=== PATIENT | male | born 1995 | race Caucasian/White ===

== ENCOUNTER 2016-07-07 17:19 | Observation (INO) | payer OTHER ==
[2016-07-07] MEDS ORDERED: Tetanus-Diptheria Toxoids* 0.5 ML SYRINGE IM ONE (18:41)
--- NOTE | 2016-07-07 19:31 | RAD ---
Indication: Laceration over patellar tendon with chainsaw. Comparison: None. Technique: AP and lateral views LEFT knee. REPORT AND IMPRESSION: Negative for fracture or joint effusion. Anterior soft tissue laceration which appears to involve the patellar tendon. Given normal position of the patella without gross retraction a complete patellar tendon tear is not suspected. The tear may be full-thickness anterior posterior based on the lateral radiograph but incomplete in the medial lateral direction. Anterior soft tissue swelling.
[2016-07-07] MEDS ORDERED: diPHENhydraMINE PO* 25 MG PO PRN (21:22)
[2016-07-07] MEDS ORDERED: Ondansetron INJ* 2 MG/ML VIAL IV PRN (21:22)
[2016-07-07] MEDS ORDERED: Acetaminophen TAB* 325 MG PO PRN (21:22)
[2016-07-07] MEDS ORDERED: NS 0.9% 1000 ML* 1,000 ML IV SCH (21:30)
[2016-07-07] MEDS ORDERED: ceFAZolin 1 GM in Dextrose (*) 1 GM/50 ML BAG IVPB ONE (21:36)
[2016-07-07] MEDS: oxyCODONE/Acetamin 5/325 MG* TAB PO PRN (21:38)
[2016-07-07] MEDS: ceFAZolin 1 GM in Dextrose (*) 1 GM/50 ML BAG IVPB SCH (21:45)
--- NOTE | 2016-07-07 21:56 | ED ---
Lower Extremity - History of Current Complaint Chief Complaint: EDLacSutureRecheck Stated Complaint: LEFT KNEE LAC FROM CHAINSAW Time Seen by Provider: 07/07/16 17:44 Pain Intensity: 6 - Allergies/Home Medications Allergies/Adverse Reactions: Allergies Allergy/AdvReac Type Severity Reaction Status Date / Time No Known Allergies Allergy Verified 07/07/16 17:36 PMH/Surg Hx/FS Hx/Imm Hx - Immunization History Date of Tetanus Vaccine: unknown Date of Influenza Vaccine: none Infectious Disease History: No Infectious Disease History: Denies: Traveled Outside the [place] in Last 30 Days - Social History Alcohol Use: None Substance Use Type: Reports: None Smoking Status (MU): Light Every Day Tobacco Smoker Physical Exam Vital Signs On Initial Exam: Initial Vitals Temp Pulse Resp BP Pulse Ox 98.8 F 108 18 147/77 100 07/07/16 17:33 07/07/16 17:33 07/07/16 17:33 07/07/16 17:33 07/07/16 17:33 Procedures - Laceration/Wound Repair 1 Location: lower extremity - knee Description: Linear Anesthesia: Local, Bicarb Betadine Prep?: Yes Irrigated w/ Saline (ccs): 500 Laceration/Wound Explored: contaminated - pieces of wood, bug, dirt Debridement: minimal Suture Type: Nylon - 4-0 Layer Closure?: No Sterile Dressing Applied?: Yes Diagnostics - Vital Signs Vital Signs Temp Pulse Resp BP Pulse Ox 07/07/16 18:01 100.1 F 107 18 143/81 98 07/07/16 17:33 98.8 F 108 18 147/77 100 - Laboratory Lab Statement: Any lab studies that have been ordered have been reviewed, and results considered in the medical decision making process.
--- NOTE | 2016-07-08 00:27 | HP ---
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 The patient noted bleeding and pain about the knee. He presented to [facility] Emergency Department, where the patient was seen by ED staff. Wound was cleaned out with normal saline. The patient was given a dose of antibiosis and the tetanus was updated. This surgeon was in the emergency department seeing another patient and came over to examine Mr. Bello. Left knee wound had been previously numbed up by ED staff. The patient denied any fevers, sweats, chills. The patient denied any other injuries to any other body parts. No head trauma. No loss of consciousness. No fevers, sweats, chills. PAST MEDICAL HISTORY: Seasonal allergies. PAST SURGICAL HISTORY: None. MEDICATIONS: None. ALLERGIES: No known drug allergies. REVIEW OF SYSTEMS: No fevers, sweats, or chills. No chest pain, palpitations, or shortness of breath. No head pain or abdominal pain. Denies any numbness or tingling of left lower extremity prior to the local anesthetic block by ED staff. PHYSICAL EXAMINATION GENERAL: No acute distress, alert and oriented x3, appropriate mood and affect , appropriate dress and hygiene, well coordinated bilateral upper and lower extremities, gait not assessed secondary to the patient lying supine on the hospital bed in the emergency department. VITAL SIGNS: Afebrile, vital signs stable. LEFT LOWER EXTREMITY EXAM: Reveals a transverse incision just distal to the patella on the anterior aspect of the left knee. It is jagged in shape. A clearly deep to skin and superficial tissue. Local anesthetic block had been done, so sensation was not reliable immediately about the incision as part of the exam. However, sensation was intact about the ankle and foot distally. Cap refill less than 2 seconds and fully motor intact about the foot, ankle, and toes. The patient had straight leg raise intact. However, strength of knee extension was not symmetric with contralateral knee given some discomfort concomitant with this. As the patient's local anesthetic block was setting in, which had been applied by the ED staff, I applied a saline load test to the knee joint. I flexed the knee to 90 degrees. I injected 25 cc of normal saline into the knee through anterolateral portal with an 18-gauge needle into the knee joint. There was some minimal amount of fluid extravasation through the wound. It was not a significant amount, but with clearly some fluid seeping through the wound. Then, once the local anesthetic had fully functioned, I evaluated the wound using for retraction 2 Rc retractors as well as a self-retaining retractor. There was clearly some of the medial half of the patellar tendon that had been cut, full-thickness as well as some extensor retinaculum medial to that, appeared no gross contamination of the wound whatsoever. With my finger, I moved proximally through the wound, possibly up into the knee joint, although it was not clear and I did not want force my finger into the knee joint. No active bleeding. DIAGNOSTIC STUDIES/LAB DATA: X-rays, two-views of the left knee obtained in the emergency department, showed no fracture or foreign body of the left knee. There was some clear soft tissue disruption and it clearly goes to a depth consistent with the deep aspect of the patellar tendon viewed on the lateral view, although the AP view does not make it obvious, but level medial to lateral , this defect is present. ASSESSMENT: 1. Left knee traumatic patellar tendon laceration, partial width. 2. Left knee joint traumatic laceration. PLAN: 1. I explained to the patient and his uncle that given the depth of the wound, the patient clearly needs a deep closure of this wound including a patellar tendon closure and medial extensor retinacular closure. The suture for this is not readily available in the emergency department, also the sterility of the wound, and instrumentation for this is not readily available. Therefore, that injury in itself would do best with closure in the operating room. 2. I explained to the patient and his uncle that as well, there is clearly degree of communication of this wound with the knee joint; however, small, given the findings of my saline load test, I discussed the knee exam section of both. Therefore, it would be most appropriate that he have a very thorough irrigation and debridement, in a maximally sterile setting with maximal thoroughness to avoid a skagway knee joint infection. With regards to the timing of this procedure, I am comfortable waiting until tomorrow morning as there is no current sign of infection in either his wound or his knee joint. The patient had no pain with passive range of motion of the knee and there is no erythema of skin edges or purulent-looking wound discharge. 3. Admission to my service overnight. NPO after midnight. IV fluids. Ancef 1 g IV q.8 hours. 4. To the operating room in the morning for an open left patellar tendon repair and an irrigation and debridement of left knee arthroscopic verus open. [id number]/CPS #: [id number] CARTER
[2016-07-08] MEDS: oxyCODONE/Acetamin 5/325 MG* TAB PO PRN (04:00)
[2016-07-08] MEDS: ceFAZolin 1 GM in Dextrose (*) 1 GM/50 ML BAG IVPB SCH (06:05)
[2016-07-08] MEDS ORDERED: EPINEPHrine AMP 1 MG/ML ONE (08:48)
[2016-07-08] MEDS ORDERED: Dexamethasone IV* 4 MG/ML 1 ML (4 MG) ONE (09:54)
[2016-07-08] MEDS ORDERED: KETAMINE HCL* 50 MG/ML 10 ML VIAL ONE (09:54)
[2016-07-08] MEDS ORDERED: Propofol* 10 MG/ML 20 ML BTL IV PUSH ONE (09:54)
[2016-07-08] MEDS ORDERED: Ondansetron INJ* 2 MG/ML VIAL ONE (09:54)
[2016-07-08] MEDS ORDERED: Lidocaine 2% PF * 5 ML VIAL ONE (09:54)
[2016-07-08] MEDS ORDERED: Ketorolac INJ* 30 MG/ML 1 ML VIAL ONE (09:54)
[2016-07-08] MEDS ORDERED: fentaNYL* 50 MCG/ML 5 ML VIAL (250 MCG VIAL) ONE (09:54)
[2016-07-08] MEDS ORDERED: Midazolam* 1 MG/ML 5 ML VIAL (5 MG) ONE (09:54)
[2016-07-08] MEDS ORDERED: Bupivacaine 0.5% W/EPI SDV* 30 ML VIAL ONE (10:00)
[2016-07-08] MEDS ORDERED: ceFAZolin 2 GM PREMIX(*) 2 GM/50 ML BAG IVPB ONE ×2 (10:09→10:10)
[2016-07-08] MEDS ORDERED: fentaNYL* 50 MCG/ML 2 ML VIAL (100 MCG VIAL) IV PRN (11:03)
[2016-07-08] MEDS ORDERED: Ondansetron INJ* 2 MG/ML VIAL IV PRN (11:03)
[2016-07-08] MEDS ORDERED: DiMENhydriNATE IV* 50 MG/ML VIAL IV PUSH PRN (11:03)
[2016-07-08] MEDS ORDERED: HYDROmorphone* 1 MG/ML 1 ML SYR ONE (12:00)
[2016-07-08 13:45] VITALS: BP 118/73
--- NOTE | 2016-07-09 01:08 | OP ---
DATE OF OPERATION: 07/08/16 - ROOM #332 DATE OF : 89 SURGEON: Juan Carlos Peace MD CHIP MUCKER: WILMA Weems ANESTHESIOLOGIST: Dewayne Cerrato MD ANESTHESIA: General anesthesia, local anesthesia. PRE-OP DIAGNOSES: 1. Left knee wound. 2. Possible left knee patellar tendon tear. 3. Left knee joint wound. POST-OP DIAGNOSES: 1. Left knee wound. 2. Left knee laceration of extensor mechanism, preservation of patellar tendon. 3. Left knee joint wound. OPERATIVE PROCEDURE: 1. Open irrigation and debridement, left knee area wound. 2. Arthroscopic irrigation and debridement, left knee joint. 3. Closure, left knee extensor retinaculum and wound. 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 The patient noted some bleeding and a deep wound about the left knee after he cut himself with the chainsaw. A branch spun back towards him causing the chainsaw to jump. The patient presented to the [facility] Emergency Department where he was seen by ED staff. The patient was given a dose of antibiosis and tetanus was updated. The ED staff performed local anesthetic block and cleaned out the wound. It was not described as being grossly contaminated. I was in the emergency department seeing another patient and was asked to evaluate the wound. Using retractors and doing my best with the light of the emergency room equipment, I determined that the wound was indeed deep. It had a minimum evaluated involved extensor retinaculum. It seemed to involve some of the patellar tendon, medial aspect, as well. The patient did, however, have an intact straight leg raise. The edges of the skin were noted to be significantly jagged, consistent with a chainsaw cut. The wound was clearly going to require several deep to the skin closure. Also, in the emergency department, I performed a saline load test. I injected 30 cc of normal saline into the patient's knee. Fluid extravasated from the wound. This allowed me to determine there is likely communication between the wound and the knee joint itself. This indicated that the knee joint itself needed to be irrigated and debrided to prevent infection. I neglected to mention earlier the shape of the laceration. It was transverse, at the level of the midpoint of the patellar tendon from proximal to distal, along the anterior aspect of the knee, approximately 10 to 12 cm in length. Determining in the emergency department that the knee joint would need to be washed out and that the wound itself wound need a layered closure as well as possibly a repair of the patellar tendon, I decided to admit the patient to myself. ED staff was nice enough to close the skin laceration loosely. The patient was admitted to the floor, started on Ancef 1g IV q.8 hours and made n.p.o. after midnight. We discussed benefits, risks, and potential complications of surgical procedure for the next morning. ANTIBIOSIS: 2 g Ancef IV. IV FLUIDS: 1400 cc crystalloid. TOURNIQUET TIME: 66 minutes at 300 mmHg. ESTIMATED BLOOD LOSS: Minimal. SPECIMEN: None. IMPLANTS: None. COMPLICATIONS: None. DESCRIPTION OF PROCEDURE: Preoperative consent, written, was signed. Operative extremity was marked in preoperative holding. The patient had received the previous dose of Ancef IV just prior to 4 hours, prior to the start of our procedure. Therefore, I ordered 2 g Ancef IV to be received pre and perioperatively. The patient was brought back to the operating room and placed on the operating room table, supine. The patient was sedated and intubated. A left proximal thigh tourniquet was placed, but not yet inflated. Two lateral posts were placed on the table. One was to keep the lower extremity in neutral rotation and the more distal one was to help open the knee with arthroscopy. There was also a bump placed on top of the table to hold the foot with the knee in proximally 80 degrees of flexion. Left lower extremity was prepped and draped. Surgical time-out was performed. Discussed the plan with the surgical team, which was for open exploration of wound with irrigation debridement, followed by arthroscopic irrigation and debridement of the knee joint itself, followed by a closure of the wound, including extensor retinaculum and possibly part of the patellar tendon. Removed 4 or 5 stitches from the laceration site that the ED staff had placed to oppose the skin edges. The instruments used to cut out these stitches were set aside not to be used. The wound was opened up. It was irrigated profusely with crystalloid through cystoscopy tubing and using the surgeon's digits as well as a curette to debride any possible microscopic debris. The bleeding was very minimal. There was slight ooze with irrigation. I decided at this point to raise the tourniquet to improve my visualization. Esmarch was applied and the tourniquet was elevated to 300 mmHg. Evaluated wound. Patellar tendon was not clearly involved, but some extensor retinaculum medial to the patellar tendon clearly was. There seemed to be a deeper defect about the medial most aspect of the wound moving proximally, possibly up into the knee joint. I irrigated well these tissues again with cystoscopy tubing. To confirm possible involvement of the left knee joint itself, I then performed an additional saline load test with 40 cc of normal saline. Looking at the wound, there was some slight ooze of fluid out of the wound just at the point that I began the injection of saline. While this was not a vigorous release of fluid, there clearly seemed to be some communication, however, small. I, therefore, proceeded with knee arthroscopic irrigation and debridement. Anterolateral knee arthroscopy portal was established using standard technique. Diagnostic arthroscopy was commenced. No cartilage lesions in the patellofemoral compartment. There was noted to be significant amount of anterior inflammation of fat pad and synovitis about the knee. Looking suprapatellar, then established a proximal superolateral portal and placed an outflow cannula in that location, so that as I worked through the knee, fluid would be cycling from my arthroscope to that outflow portal, maximizing the flow of the irrigant use to hydrate including the knee joint. I dropped down into the intercondylar notch. With the knee at 90 degrees, I was able to make an anteromedial knee arthroscopy portal under direct visualization. Both these portals fortunately were at least 1 cm or 1.5 cm proximal to the laceration at the deeper wound tissue. Entered an arthroscopic shaver through the anteromedial portal and used it to debride some anterior synovitic tissue. Switched portals and then worked through the anterolateral portal to debride a little bit of additional anterior synovitis. I was then able to well visualize the medial and lateral compartments. No meniscal tears. No articular cartilage lesions. No foreign bodies. No clear areas of purulence or foci of infective material. Continued pushing water through the knee with arthroscope until 9 L had been infused through the knee. At this point, I removed all instruments and fluid from the knee. I closed my three knee arthroscopy portals with figure-of-8 stitches using Prolene 4-0 suture. Next, returned to the open wound, transverse, at the level of the patellar tendon. Again, inspect for a clear sign of patellar tendon laceration. While there was clearly extensor retinaculum that had been injured, deep, this tissue seemed adjacent to the tendon tissue itself. Although the transition between the two is not always 100% obvious. I irrigated again with cystoscopy tubing, curette, and digit, to clean out well this wound. Closed the extensor retinaculum with figure-of-8 stitches using a PDS-like monofilament absorbable suture. After approximately 6 of these stitches were placed in the deep extensor retinaculum layer, I then closed the subcutaneous tissue with buried simple stitches using the same monofilament 2-0 suture stitches. We then closed the skin laceration with a horizontal and vertical mattress stitches as well as a couple of simple stitches using Prolene 4-0 suture. Some local anesthetic, approximately 10 cc was infused into the subcutaneous tissue about the incisions. Xeroform, 4x4s, sterile Webril, Nabor bandages, dressing. A brace was placed on and locked in extension. DISPOSITION: The patient will be discharged home when medically stable in the PACU. The patient by the conclusion of the case have received 3 separate doses of IV antibiotics including 1 g of Ancef IV the night of admission, 1 g of Ancef of IV at 6 a.m. the morning of the procedure, and then 2 g IV at the start of the procedure. After three IV doses of antibiotics, thorough washout, and discharge home with oral antibiotics, I thought that was sufficient for an infection prophylaxis and the patient did not require to be admitted postoperatively for any more antibiotics. The patient was discharged on Keflex oral antibiotics and Percocet as needed for pain. My discharge instructions were written out thoroughly and discussed with the patient and his uncle. The patient is weightbearing as tolerated. I encouraged him to start physical therapy immediately to make sure that he obtains full range of motion as quickly as possible as his wound may cause him discomfort the more he flexes his knee. It will also help him regain strength. With regards to the brace, he did not a have formal, clark extensor tendon repair required, I am okay with the patient walking unprotected as soon as he can do so comfortably. Therefore, I told the patient to start weightbearing as tolerated with the brace locked in extension, but he can wean himself out of that to brace unlocked and then wean out of the brace itself. I would like the patient to follow up with an orthopedic surgeon in the [facility], where he lives, 10 to 14 days postoperative and I will check in by phone with him in 1 to 2 weeks. The patient has my cell phone number, with any questions or problems, he can get in touch with me. [id number]/CPS #: [id number] CARTER
== END 2016-07-08 14:14 | disposition home or self-care (01) ==
LOC: ED 17:19 → SSU 21:22
PROVIDERS: ADMIT Orthopaedic Surgery; ATTEND Orthopaedic Surgery
PROC: 0LQR0ZZ Repair Left Knee Tendon, Open Approach (ICD-10-PCS; principal; 2016-07-07)
DX: S76.122A Laceration of left quadriceps muscle, fascia and tendon, initial encounter (principal); S81.022A Laceration with foreign body, left knee, initial encounter; W31.2XXA Contact with powered woodworking and forming machines, initial encounter; Y93.89 Activity, other specified; Y92.007 Garden or yard of unspecified non-institutional (private) residence as the place of occurrence of the external cause; Z23 Encounter for immunization
CPT/HCPCS: 90471; 96365; 99283; A9270-GY; G0378; J0171; J0690; J1100; J1170; J1885; J2250; J2405; J2704; J3010